=== PATIENT | male | born 1950 | race Caucasian/White ===

== ENCOUNTER 2022-01-31 23:39 | Observation (INO) | payer OTHER ==
[~2022-01-31] VITALS: Ht 177.8 cm; Wt 81.6 kg
[2022-02-01 00:10] LABS: HEMOGLOBIN 14.9 gm/dl (14.0-17.5); RED BLOOD COUNT 4.65 M/UL (4.20-5.50); WHITE BLOOD COUNT 12.9 K/UL (4.5-11.0)
[2022-02-01 00:38] LABS: BUN/CREATININE RATIO 15 (0-10)
[2022-02-01] MEDS ORDERED: PROAIR HFA8.5 GM INH (10:56)
[2022-02-01] MEDS ORDERED: ATORVASTATIN CA80 MG PO (10:56)
[2022-02-01] MEDS ORDERED: VITAMIN D325 MCG PO (10:57)
[2022-02-01] MEDS ORDERED: GABAPENTIN300 MG PO (10:58)
[2022-02-01] MEDS ORDERED: METFORMIN HCL500 MG PO (10:59)
[2022-02-01] MEDS ORDERED: HYDROCODON-ACE1 EAC2 PO (10:59)
[2022-02-02 03:07] LABS: WHITE BLOOD COUNT 15.6 K/UL (4.5-11.0)
[2022-02-02 03:28] LABS: BUN/CREATININE RATIO 26 (0-10)
[2022-02-02 03:46] LABS: HEMOGLOBIN 12.7 gm/dl (14.0-17.5); RED BLOOD COUNT 3.98 M/UL (4.20-5.50)
--- NOTE | 2022-02-02 16:03 | NUR ---
Pt ambulating in hallway on room air when O2 saturation dropped to 87%, applied O2 at 2L via NC and O2 saturation went up to 98%.
[2022-02-03 03:04] LABS: HEMOGLOBIN 12.2 gm/dl (14.0-17.5); RED BLOOD COUNT 3.88 M/UL (4.20-5.50)
[2022-02-03 03:36] LABS: BUN/CREATININE RATIO 26 (0-10)
[2022-02-03] MEDS ORDERED: MEDROL TAB 4 MG4 MG PO (10:25)
[2022-02-03] MEDS ORDERED: ZITHROMAX250 MG PO (10:26)
== END 2022-02-03 14:48 | disposition home or self-care (01) ==
LOC: ER1 23:39 → M/S 02-01 01:52 → CDU 02-01 01:52 → M/S 02-01 07:43
PROVIDERS: Internal Medicine; ADMIT Internal Medicine
DX: J44.1 Chronic obstructive pulmonary disease with (acute) exacerbation (principal); J96.01 Acute respiratory failure with hypoxia; D72.829 Elevated white blood cell count, unspecified; I10 Essential (primary) hypertension; E11.9 Type 2 diabetes mellitus without complications; E78.5 Hyperlipidemia, unspecified; F17.210 Nicotine dependence, cigarettes, uncomplicated; G89.29 Other chronic pain; M50.30 Other cervical disc degeneration, unspecified cervical region; M51.36 Other intervertebral disc degeneration, lumbar region; Z20.822 Contact with and (suspected) exposure to COVID-19; Z79.84 Long term (current) use of oral hypoglycemic drugs; Z79.899 Other long term (current) drug therapy; Z88.6 Allergy status to analgesic agent; Z88.8 Allergy status to other drugs, medicaments and biological substances
CPT/HCPCS: 36415; 36600; 71045; 80053; 82550; 82553; 82803; 82962; 83605; 83880; 84484; 85025; 87040; 93005; 94640; 94664; 94760; 96372; 96374; 96375; 96376; 99285; G0378; J0696; J1650; J2920; J2930; U0002